=== PATIENT | female | born 2000 | race Caucasian/White ===

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

== ENCOUNTER → 2022-12-10 | Outpatient (CLI) | payer BC ==
--- NOTE | 2022-12-11 11:10 | CA ---
Transthoracic Echo Report Name: Ami Small Age: 22 Gender: F : 2000 Exam Date: 12/10/2022 11:35 Exam Location: [facility] Ht (in): 66 Wt (lb): 164 Ordering Physician: Narciso Van DO Attending/Referring Phys: Telegraphic Typewriter Repairer Kamila Lobo RDCS Procedure CPT: Indications: R42 dizziness and giddiness Cardiac Hx: Technical Quality: Fair Contrast 1: Total Dose (mL): Contrast 2: Total Dose (mL): MEASUREMENTS (Male / Female) Normal Values 2D ECHO LV Diastolic Diameter PLAX 4.8 cm 4.2 - 5.9 / 3.9 - 5.3 cm LV Systolic Diameter PLAX 3.3 cm IVS Diastolic Thickness 0.8 cm 0.6 - 1.0 / 0.6 - 0.9 cm LVPW Diastolic Thickness 0.9 cm 0.6 - 1.0 / 0.6 - 0.9 cm LV Relative Wall Thickness 0.4 RV Internal Dim ED PLAX 3.5 cm LA Volume 52.7 cm??? 18 - 58 / 22 - 52 cm??? M-MODE Aortic Root Diameter MM 2.5 cm LA Systolic Diameter MM 2.7 cm LA Ao Ratio MM 1.1 AV Cusp Separation MM 2.0 cm DOPPLER AV Peak Velocity 118.0 cm/s AV Peak Gradient 5.6 mmHg AV Mean Velocity 86.0 cm/s AV Mean Gradient 3.2 mmHg AV Velocity Time Integral 26.2 cm LVOT Peak Velocity 91.2 cm/s LVOT Peak Gradient 3.3 mmHg LVOT Velocity Time Integral 19.0 cm MV Area PHT 5.8 cm??? Mitral E Point Velocity 85.6 cm/s Mitral A Point Velocity 57.9 cm/s Mitral E to A Ratio 1.5 MV Deceleration Time 130.2 ms MV E' Velocity 16.6 cm/s Mitral E to MV E' Ratio 5.2 TR Peak Velocity 199.8 cm/s TR Peak Gradient 16.0 mmHg Right Ventricular Systolic Press 19.7 mmHg FINDINGS Left Ventricle Normal Left ventricular size, wall thickness, systolic function with no obvious regional wall motion abnormalities. Normal Left ventricular diastolic filling pattern. Left ventricular ejection fraction is estimated at 55-60 %. Right Ventricle Normal right ventricular size and function. Right ventricular systolic pressure within normal limits. Right Atrium Normal right atrial size. Left Atrium Normal left atrial size. Interatrial septal aneurysm. Mitral Valve Structurally normal mitral valve. Mild mitral regurgitation. Aortic Valve No aortic valve stenosis or regurgitation. Tricuspid Valve Structurally normal tricuspid valve. Mild tricuspid regurgitation. Pulmonic Valve Structurally normal pulmonic valve. Trace pulmonic regurgitation. Pericardium No pericardial effusion. Aorta Normal size aortic root and proximal ascending aorta. CONCLUSIONS Normal LV systolic function Mild mitral regurgitation Mild tricuspid regurgitation Previewed by: Dr. Donavan Gregg MD (Electronically Signed) Final Date: 11 December 2022 11:09
== END | disposition home or self-care (01) ==
LOC: RADECHMAIN 10:56
PROVIDERS: ATTEND Family Medicine
DX: I08.1 Rheumatic disorders of both mitral and tricuspid valves (principal); R42 Dizziness and giddiness
CPT/HCPCS: 93306